=== PATIENT | male | born 1985 | race Caucasian/White ===

== ENCOUNTER 2017-08-31 09:13 | Inpatient (IN) | payer OTHER ==
[2017-08-31] VITALS (13 sets, daily range): BP systolic 92–163; BP diastolic 67–92
[~2017-08-31] VITALS: Ht 172.7 cm; Wt 87.0 kg
[2017-08-31] MEDS ORDERED: morphine 2 MG/ML inj. syringe IV ONE ×2 (09:30→11:05)
[2017-08-31] MEDS ORDERED: normal saline 1000ML IV soln IVB ONE (09:30)
[2017-08-31 10:14] LABS: BASOPHILS # (AUTO) 0.1 X10'3 (0-0.2); EOSINOPHILS % (AUTO) 0.2 % (0-6); HEMATOCRIT 46.6 % (42.0-52.0); HEMOGLOBIN 16.4 g/dl (14.0-17.9); LYMPHOCYTES % (AUTO) 6.9 % (21-51); MEAN CORPUSCULAR HEMOGLOBIN 30.8 PG (27.0-31.0); MEAN CORPUSCULAR HGB CONC 35.2 % (33.0-36.5); MEAN CORPUSCULAR VOLUME 87.4 FL (78-98); MEAN PLATELET VOLUME 7.1 FL (7.4-10.4); MONOCYTES # (AUTO) 0.9 X10'3 (0-0.9); NEUTROPHILS # (AUTO) 12.4 X10'3 (1.8-7.7); NEUTROPHILS % (AUTO) 85.9 % (42-75); PLATELET COUNT 263 X10'3 (140-440); RED BLOOD COUNT 5.33 X10'6 (4.70-6.10); RED CELL DISTRIBUTION WIDTH 11.8 % (11.5-14.5); WHITE BLOOD COUNT 14.4 X10'3 (4.5-11.0)
[2017-08-31 10:23] LABS: INR 1.1 INR; PROTHROMBIN TIME 10.9 SECONDS (9.0-12.0)
[2017-08-31 10:28] LABS: ALANINE AMINOTRANSFERASE 33 U/L (12-78); ALBUMIN 4.1 G/DL (3.4-5.0); ALBUMIN/GLOBULIN RATIO 1.2 (1.1-1.5); ALKALINE PHOSPHATASE 83 IU/L (46-116); ANION GAP 7 (8-16); ASPARTATE AMINO TRANSFERASE 17 U/L (10-37); BILIRUBIN,TOTAL 0.9 MG/DL (0.1-1.0); BLOOD UREA NITROGEN 10 MG/DL (7-18); BUN/CREATININE RATIO 9.8 (5.4-32.0); CHLORIDE 102 MMOL/L (99-107); CREATININE 1.02 MG/DL (0.60-1.10); GLUCOSE 113 MG/DL (70-104); LIPASE 149 U/L (73-393); POTASSIUM 3.9 MMOL/L (3.5-5.1); SODIUM 138 MMOL/L (135-145); TOTAL CARBON DIOXIDE 29.4 MMOL/L (24-32); TOTAL PROTEIN 7.5 G/DL (6.4-8.2); eGFR 84 ML/MIN
[2017-08-31] MEDS ORDERED: NO HOME MEDS (10:57)
[2017-08-31] MEDS ORDERED: ondansetron/PF 4mg/2ml inj IV ONE (11:05)
[2017-08-31] MEDS ORDERED: ondansetron/PF 4mg/2ml inj IV PRN ×3 (11:30→18:10)
[2017-08-31] MEDS ORDERED: HYDROmorphone inj. 0.5 MG/0.5 ML DISP.SYRIN IV PRN (11:30)
[2017-08-31] MEDS ORDERED: magnesium hydroxide 30ml (MOM) UD suspension PO PRN (11:30)
[2017-08-31] MEDS ORDERED: mag hydrox/Alum hydrox/simeth 30ml oral suspension PO PRN (11:30)
[2017-08-31] MEDS ORDERED: acetaminophen 325mg tablet PO PRN (11:30)
[2017-08-31 11:34] LABS: CLARITY,URINE CLEAR (Clear); COLOR,URINE YELLOW (Yellow); GLUCOSE, URINE NEGATIVE (Neg); KETONES,URINE 40 mg/dl (Neg); LEUKOCYTE ESTERASE ,URINE NEGATIVE (Neg); NITRITES, URINE NEGATIVE (Neg); OCCULT BLOOD,URINE NEGATIVE (Neg); PROTEIN,URINE NEGATIVE (Neg); UROBILINOGEN,URINE 0.2 E.U/dL (0.2-1.0)
[2017-08-31 11:35] LABS: UA COLLECTION TYPE CLN CATCH MIDSTREAM
[2017-08-31] MEDS: dextrose 5%-1/2 normal saline 1,000 ML IV SCH ×2 (12:02→21:47)
[2017-08-31] MEDS ORDERED: ringers solution, lacted 1,000 ML IV SCH ×2 (14:24→18:10)
[2017-08-31] MEDS ORDERED: morphine 2 MG/ML inj. syringe IV PRN ×4 (14:25→18:10)
[2017-08-31] MEDS ORDERED: meperidine/PF 50mg/ml syringe IV PRN ×6 (14:25→18:10)
[2017-08-31] MEDS ORDERED: proCHLORperazine 10 MG/2 ml inj IV PRN ×2 (14:25→18:10)
[2017-08-31] MEDS ORDERED: BUPIVAcaine/PF 2.5 mg/ml (0.25%) 30ml vial ONE (17:32)
[2017-08-31] MEDS ORDERED: sevoflurane 250ml liquid IH ONE (18:00)
[2017-08-31] MEDS ORDERED: fentaNYL/PF 50MCG/1 ML 2ML syringe ONE ×2 (18:23→19:08)
[2017-08-31] MEDS ORDERED: midazolam 2 mg/2 ml injection ONE (18:23)
[2017-08-31] MEDS ORDERED: propofol inj 20 ML IV ONE (18:54)
[2017-08-31] MEDS ORDERED: ondansetron/PF 4mg/2ml inj ONE (18:54)
[2017-08-31] MEDS ORDERED: glycopyrrolate 0.2mg/ml inj ONE (18:54)
[2017-08-31] MEDS ORDERED: LIDOcaine 2% (20mg/ml) 5ml vial ONE (18:54)
[2017-08-31] MEDS ORDERED: dexamethasone sod phosphate 4mg/ml inj. ONE (18:54)
[2017-08-31] MEDS ORDERED: rocuronium 10mg/ml inj IV ONE (18:54)
[2017-08-31] MEDS ORDERED: neostigmine methylsulfate 1 MG/ML 10ml vial ONE (18:54)
[2017-08-31] MEDS ORDERED: temazepam 15mg capsule PO PRN (21:00)
[2017-08-31] MEDS: piperacillin/tazo 3.375gm/50ml 50 ML IV SCH (21:47)
[2017-09-01] VITALS: BP 133/79
[2017-09-01] MEDS: piperacillin/tazo 3.375gm/50ml 50 ML IV SCH ×4 (01:30→23:56)
[2017-09-01] MEDS: HYDROcodone/acetaminophen 5mg/325mg tablet PO PRN ×3 (01:31→10:26)
[2017-09-01 07:00] VITALS: BP 132/79
[2017-09-01] MEDS: dextrose 5%-1/2 normal saline 1,000 ML IV SCH ×2 (08:28→17:54)
[2017-09-01 11:35] VITALS: BP 132/81
[2017-09-01 13:01] VITALS: BP 134/77
[2017-09-01] MEDS: ketorolac tromethamine 15mg/ml inj. IV SCH ×3 (13:56→19:45)
[2017-09-01] MEDS: lactobacillus rhamnosus 10,000 MMU CELLS/CAPSULE PO SCH (17:23)
[2017-09-01 18:00] VITALS: BP 140/80
[2017-09-02] VITALS: BP 111/64
[2017-09-02] MEDS: dextrose 5%-1/2 normal saline 1,000 ML IV SCH ×2 (04:11→13:27)
[2017-09-02] MEDS: ketorolac tromethamine 15mg/ml inj. IV SCH ×3 (04:20→14:00)
[2017-09-02 07:28] VITALS: BP 119/71
[2017-09-02] MEDS: lactobacillus rhamnosus 10,000 MMU CELLS/CAPSULE PO SCH (07:56)
[2017-09-02] MEDS: HYDROcodone/acetaminophen 5mg/325mg tablet PO PRN (07:56)
[2017-09-02] MEDS: piperacillin/tazo 3.375gm/50ml 50 ML IV SCH (07:56)
[2017-09-02 11:00] VITALS: BP 130/86
[2017-09-02] MEDS ORDERED: HYDR-565 PO (14:18)
== END 2017-09-02 14:30 | disposition home or self-care (01) | DRG 343 ==
LOC: ER 09:14 → SUR 3N 11:27 → CMPBEDREQ 19:31
PROVIDERS: ADMIT Internal Medicine; ATTEND Internal Medicine
PROC: 0DTJ4ZZ Resection of Appendix, Percutaneous Endoscopic Approach (ICD-10-PCS; principal; 2017-08-31 18:25)
DX: K35.80 Unspecified acute appendicitis (principal); Z88.8 Allergy status to other drugs, medicaments and biological substances
CPT/HCPCS: 96374; 96375; 96376; 99285; Z7506; 36415; 74176; 80053; 81003; 82948; 83690; 85025; 85610; 87070; A7000; J1100; J1170; J1885; J2001; J2175; J2250; J2270; J2405; J2543; J2704; J2710; J3010; J3490; J7030; J7120